=== PATIENT | male | born 1955 | race Caucasian/White ===

== ENCOUNTER 2017-11-11 07:55 | Day surgery (SDC) | payer BC ==
[2017-11-11] MEDS ORDERED: PROPOFOL 10 MG/ML VIAL IV ONE (07:56)
[2017-11-11] MEDS ORDERED: MIDAZOLAM HCL 2MG/2ML VIAL IV ONE (07:56)
[2017-11-11] MEDS ORDERED: LIDOCAINE 2% MDV (20MG/ML) 20ML VIAL IV ONE (07:56)
--- NOTE | 2017-11-13 09:50 | Operative Note ---
DATE OF SURGERY: 11/11/2017 OPERATION: COLONOSCOPY to the cecum. INDICATION: Family history of colon cancer (father and paternal grandmother). The patient returns after 5 years for high-risk screening. ANESTHESIA: Intravenous sedation was administered by the department of anesthesiology and included Diprivan titrated to effect. PROCEDURE: Following informed consent from this alert individual including a discussion of the risks and benefits of the procedure and an opportunity for the patient to ask questions, the patient was in the left lateral decubitus position. A digital rectal examination was performed. No abnormalities were noted. Following this, the Olympus [id number] video colonoscope was inserted into the rectum without resistance. The rectal mucosa had a normal appearance with normal folds and distensibility. The colonoscope was advanced up through the colon to the level of the cecum without much difficulty. Throughout the bowel the mucosa appeared normal, the folds were normal, and the bowel was fairly well distensible. A few small diverticula were noted in the sigmoid region. The cecum was defined by noting the appendiceal orifice and ileocecal valve. Colon preparation was good. From the base of the cecum, the colonoscope was then slowly withdrawn. No polyps were noted throughout the exam upon slow withdrawal. Retroflexion in the rectum demonstrated small internal hemorrhoids. The endoscope was straightened and removed. The patient tolerated the procedure well and was returned to the recovery area in stable condition. IMPRESSION: 1. Mild diverticulosis. 2. Small internal hemorrhoids. RECOMMENDATIONS: In light of the patient's family history of colon cancer in his father and paternal grandmother, colonoscopy is recommended in 5 years' time for high-risk screening. Followup will also be with Dr. Alonzo. As always, thank you for allowing me to participate in the care of your patient. CC: DO JAGDISH Miller
== END 2017-11-11 10:00 | disposition home or self-care (01) ==
LOC: HOP 07:55
PROVIDERS: ATTEND Internal Medicine Gastroenterology
DX: Z12.11 Encounter for screening for malignant neoplasm of colon (principal); Z80.0 Family history of malignant neoplasm of digestive organs; K57.30 Diverticulosis of large intestine without perforation or abscess without bleeding; K64.8 Other hemorrhoids; H81.09 Meniere's disease, unspecified ear; M54.9 Dorsalgia, unspecified

== ENCOUNTER → 2019-01-19 | Day surgery (SDC) | payer BC ==
[~2019-01-19] MED LIST: 0.9 % SODIUM CHLORIDE 100ML BAG IV ONE; ACETAMINOPHEN 1,000 MG/100 ML BTL IVPB ONE; BUPIVACAINE 0.25% W/EPI MPF 30ML VIAL SQ ONE; CEFAZOLIN 2 Gram 2 GM/50 ML BAG IVPB ONE; DESFLURANE 240 ML BTL INH ONE; DEXAMETHASONE 4 MG/ML 1ML VIAL IVP ONE; FAMOTIDINE 20MG TABLET PO ONE; FENTANYL PF 100MCG/2ML VIAL IV ONE; HYDROCODONE/APAP 5/325MG TABLET PO ONE; KETOROLAC 30 MG/ML VIAL IVP ONE; LIDOCAINE 2% MDV (20MG/ML) 20ML VIAL IV ONE; METOCLOPRAMIDE 10 MG TABLET PO ONE; MIDAZOLAM HCL 2MG/2ML VIAL IV ONE; ONDANSETRON HCL IV 4 MG/2 ML VIAL IVP ONE; PROPOFOL 10 MG/ML VIAL IV ONE; RINGERS SOLUTION,LACTATED 1,000 ML IV ONE; ROCURONIUM BROMIDE 50MG/5ML VIAL IV ONE; ROPIVACAINE HCL (NAROPIN) /PF 5MG/ML 20ML VIAL IV ONE; SCOPOLAMINE 1 PATCH TDSY TD ONE; SUCCINYLCHOLINE 20 MG/ML 10ML IVP ONE; SUGAMMADEX SODIUM 200 MG/2 ML VIAL IV ONE
--- NOTE | 2019-01-20 06:01 | Operative Note ---
DATE OF SURGERY: 01/19/2019 SURGEON: Sergei Mosley DO PREOPERATIVE DIAGNOSES: 1. Reducible right inguinal hernia. 2. Incarcerated umbilical hernia. POSTOPERATIVE DIAGNOSES: 1. Reducible right inguinal hernia. 2. Incarcerated umbilical hernia. OPERATION: 1. Laparoscopic right inguinal herniorrhaphy with mesh. 2. Open umbilical herniorrhaphy with mesh. INDICATION: The patient is a 54-year-old male who presented to the clinic with pain and bulging of his right inguinal region. He had a reducible hernia on exam. We did discuss repair. Risks, benefits, and alternatives were discussed. Risks include bleeding, infection, acute or chronic pain, recurrence. He understood this fully. He also had an incarcerated umbilical hernia which we would fix at the same time. Thereafter, consent was signed and questions answered. PROCEDURE: He was taken to the operating room and placed in a supine position. General anesthesia was administered per the department of anesthesia. The patient's abdomen was shaved of hair and prepped and draped in the usual fashion. Left arm was tucked to the side. Adequate timeout was performed. He did receive preoperative antibiotic as well as DVT prophylaxis. At this time, the periumbilical region was anesthetic with a total of 5 mL of 0.25% Sensorcaine with epinephrine. A 4 cm curvilinear infraumbilical incision was made. This was carried down to the anterior rectus fascia. The umbilical stalk was encircled and dissected free from the underlying hernia sac. Clean circumferential fascial edges were obtained. [id number] Vicryl sutures were placed on the corner of the hernia. Through this, a blunt Sri port was placed. Adequate pneumoperitoneum was established. The patient was rotated in about 15 degrees of Trendelenburg position. General exam was done. The patient had a moderate-sized indirect right inguinal hernia. Left side appeared normal. At this time, 2 additional 5 mm ports were placed at this side. At this time, the peritoneum was scored in an S-shape fashion starting from ASIS to the medial umbilical ligament. A large inferior flap was developed as the looser tissue was swept away. The hernia sac was dissected free from the cord structures and reduced as well. The symphysis pubis and Jeremiah ligament was exposed medially. At this time, a right-sided 3D Max mesh was obtained. This was placed covering the entire myopectinal orifice. Tacking device was used to tack mesh in place at the posterior aspect of the rectus, Jeremiah ligament, and above the triangle of pain. This side was then reperitonealized with tacking device as well. At this time, pneumoperitoneum was released. All ports removed. The umbilical hernia was fixed with an [address] mesh. The upper skirt was sutured to the anterior rectus fascia with 2-0 Vicryl. Umbilical skin was tacked down to the fascia with 3-0 Vicryl. Skin was closed with 3-0 and 4-0 Vicryl. He was taken to the recovery room in stable condition. FINDINGS ON SURGERY: Incarcerated umbilical hernia and reducible right inguinal hernia repaired as above. GERMAINED
== END | disposition home or self-care (01) ==
LOC: SUR 10:19
PROVIDERS: ATTEND Surgery
DX: K40.90 Unilateral inguinal hernia, without obstruction or gangrene, not specified as recurrent (principal); K42.0 Umbilical hernia with obstruction, without gangrene; K21.9 Gastro-esophageal reflux disease without esophagitis; H81.09 Meniere's disease, unspecified ear
CPT/HCPCS: 49587; 49650; 00830; 64425; C1781; J1885; J2405; J3010; J2795; J3490; 76942; J0330; J7120